=== PATIENT | female | born 1990 | race Caucasian/White ===

== ENCOUNTER 2020-02-13 20:39 | Inpatient (IN) | payer OTHER, SELFPAY ==
[~2020-02-13] VITALS: Ht 162.6 cm; Wt 82.2 kg
[2020-02-13 21:02] VITALS: BP 109/62
[2020-02-13] MEDS ORDERED: PROMETHAZINE INJ 25 MG/ML VIAL (J2550) As Ordered ONE (22:18)
[2020-02-13] MEDS ORDERED: LR 1,000 ML IV SCH (22:19)
[2020-02-13] MEDS ORDERED: BUTORPHANOL 2 MG/ML INJ (J0595) As Ordered ONE (22:19)
[2020-02-13] MEDS ORDERED: PENICILLIN G POTASSIUM IV 5 MU in D5W MINI-BAG PLUS 100 ML IV STA (22:19)
[2020-02-13] MEDS ORDERED: BUTORPHANOL 2 MG/ML INJ (J0595) IV ONE (22:30)
[2020-02-13] MEDS ORDERED: LACTATED RINGER'S 1000 ML IV SCH (22:30)
[2020-02-13] MEDS ORDERED: PROMETHAZINE INJ 25 MG/ML VIAL (J2550) IV ONE (22:30)
[2020-02-13 22:47] LABS: HEMATOCRIT 41.6 % (36.0-47.0); HEMOGLOBIN 13.8 g/dl (12.0-15.5); MEAN CORPUSCULAR HEMOGLOBIN 30.4 pg (27.0-33.0); MEAN CORPUSCULAR HGB CONC 33.2 g/dl (32.0-36.5); MEAN CORPUSCULAR VOLUME 91.6 fl (80.0-96.0); PLATELET COUNT, AUTOMATED 166 10^3/uL (150-450); RED BLOOD COUNT 4.54 10^6/uL (4.00-5.40); WHITE BLOOD COUNT 20.4 10^3/uL (4.0-10.0)
[2020-02-13 22:49] LABS: APPEARANCE, URINE CLOUDY (CLEAR); BACTERIA, URINE AUTO NEGATIVE (NEGATIVE); BILIRUBIN, URINE AUTO NEGATIVE (NEGATIVE); BLOOD, URINE BLOOD 3+ (NEGATIVE); COLOR, URINE YELLOW (YELLOW); GLUCOSE, URINE (UA) AUTO NEGATIVE (NEGATIVE); KETONE, URINE AUTO 2+ mg/dL (NEGATIVE); LEUKOCYTE ESTERASE, URINE AUTO 3+ (NEGATIVE); NITRITE, URINE AUTO NEGATIVE (NEGATIVE); PROTEIN, URINE AUTO NEGATIVE (NEGATIVE); RBC, URINE AUTO 85 /HPF (0-3); SPECIFIC GRAVITY URINE AUTO 1.011 (1.002-1.035); SQUAMOUS EPITHELIAL CELL UR AU 6 /HPF (0-6); UROBILINOGEN, URINE AUTO 0.2 mg/dL (0.0-2.0); WBC, URINE AUTO 88 /HPF (0-3)
--- NOTE | 2020-02-13 23:00 | HPEPDOC ---
Obstetrical History & Physical General Date of Admission Primary Care Physician: Antonio Padilla MD History of Present Illness 02/13/2020 29 YO G 2 P1 LMP 05/13/2019 EDC 02/17/2020 AT 39 .3 WEEKS CONTRACTI ONS MODERATE Q 5 MINUTES UNABLE TO TOLERATE THEM RISK FACTORS GBS POSITIVE HX PROLONGED LABOR LAST BABY NO LOSS OF FLUID NO BLEEDING . Chief Complaint: Contractions, term, Nausea and vomiting Information Provided By: Patient Age: 29 : 2 Term: 1 Livin Care Care: Good Care Dating Final EDC: Feb 17, 2020 Final EDC for Daily Update: Feb 17, 2020 Final EDC by: 1st trimester (US) LMP: May 13, 2019 1st Trimester Date: Jul 26, 2019 Estimated Date of Confinement: Feb 17, 2020 Past Medical History Past Obstetrical History : Past Obstetrical History: Multigravida Date of Delivery: Mar 03, 2017 Type of Delivery: Spontaneous Vaginal Del. HOME HOSPICE RN History: No pertinent history Past Medical History Surgical History: Other Family History Significant Family History: No pertinent family hx Social History Marital Status: Family situation: Spouse/partner home Psychosocial History: No pertinent psych hx * Smoker: non-smoker Alcohol: Denies Drugs: denies Abuse Violence Screening Have you been hit/kicked/slapp: No Have you been sexually assault: No Physical Examination Physical Examination GENERAL: Alert and oriented times three. BREAST: . ABDOMEN: Gravid and non-tender to touch. FETUS: Is vertex (VTX) by sterile vaginal examination (SVE), fetus is vertex (VTX) by Cheikh. HEART RATE: Regular rate and rhythm. LUNGS: Clear to auscultation NO WHEEZES NO RHONCHI EXTREMITIES: No edema. No clonus. Pertinent Laboratoy Data Blood Type: A- RBC Antibody Screen: Negative HIV: Negative Hepatitis B: Negative Rapid Plasma Reagin: Nonreactive Rubella: Immune Varicella: Nonreactive Chlamydia/Gonorrhea: Negative Group B Streptococcus: Positive Cystic Fibrosis: Negative Anatomy Ultrasound Placenta Location: Anterior Normal Anatomy: Yes Placenta Previa: No Steroid Therapy Steroid Therapy: No Vaginal Examination Dilation: 2cm Effacement: 60% Station: -3 Cervical Consistency: Soft Cervical Position: Posterior Presentation: Cephalic presentation Assessment Variability: Moderate Accelerations: Positive Decelerations: None Tocometer Contractions: Yes Frequency: regular, every 1-5 min. Duration: less than 60 seconds Strength: palpated as moderate Assessment/Plan Assessment 29-year-old (G2 para (P1 at 39.4weeks by 10.6 -week ultrasound. Presents to Labor and Delivery (L&D. Plan Admit and orient. 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 Diet: NPO Group B Streptococcus (GBS POSITIVE Labs and intravenous (IV) per unit protocol. Counseled on Pitocin AUGMENTATION Lactated Ringers (LR): Bolus 1000 mL, then at 125 mL/hr. Anticipate [normal spontaneous delivery ()]. C-S as appropriate. Labor and Delivery Counseling REVIEWED PLAN OF CARE PRESENTLY MAY BE IN EARLY LABOR HOWEVER KETONE POSITIVE + 3 POSTERIOR SOFT 2-3 CM. PATIENT GBS POSITIVE . WILL HYDRATE IV TILL KETONE NEGATIVE IV PAIN MEDICATION FOR NOW . IF CERVIX PROGRESSES THEN EPIDURAL INDICATED . WILL INITIATE GBS MEDS IF IN ACTIVE LABOR. REVIEWED VAGINAL DELIVERY THROUGH [facility] MAY NEED EPISIOTOMY WITH REPAIR TO EPISIOTOMY ALSO RISK OF INJURY TO BOWEL OR BLADDER OR SPHINCTER. AUGMENTATION MAY BE REQUIRED IF CONTRACTIONS NOT EFFECTIVE RISK TACHYSYSTOLE UTERINE RUPTURE BLOOD TRANSFUSION NRFHT EMERGENCY CS MAY LEAD TO LACERATION ADMISSION TO NICU . EXPRESSED UNDERSTANDING CATEGORY 1 STRIP SAFE TO PROCEED . VS,Fishbone, I+O VS, Fishbone, I+O Laboratory Tests 02/13/20 22:00 Antonio Padilla MD Feb 13, 2020 22:55
[2020-02-13] MEDS ORDERED: OXYTOCIN 30 UNITS IN 0.9% NaCl 500ML IV BAG (J2590) As Ordered ONE (23:46)
[2020-02-14 00:18] LABS: CORD GAS ABE A -4.2; CORD GAS ABE V -3.7; CORD GAS HCO3 V 21.7 MEQ/L; CORD GAS O2 SAT A 76.8 %; CORD GAS O2 SAT V 77.4 %; CORD GAS PCO2 V 40.7 mmHg; CORD GAS PH A 7.316 UNITS; CORD GAS PH V 7.345 UNITS; CORD GAS PO2 V 34.8 mmHg; CORD GAS SBC A 20.6 MEQ/L; CORD GAS SBC V 20.9 MEQ/L; CORD GAS TCO2 A 23.3 MEQ/L
[2020-02-14] MEDS ORDERED: RHOGAM 300 MCG (1500 IU) INJ (J2790) IM SCH (02:00)
[2020-02-14] MEDS ORDERED: METHYLERGONOVINE MALEATE 0.2 MG TAB PO PRN (02:00)
[2020-02-14] MEDS ORDERED: ANUSOL HC CREAM 30GM TOP PRN (02:00)
[2020-02-14] MEDS ORDERED: OXYTOCIN INJ 10 UNITS/ML VIAL (J2590) IV ONE (02:00)
[2020-02-14] MEDS ORDERED: OXYTOCIN DRIP 30 UNITS in IV 1 EA IV ONE (02:00)
[2020-02-14] MEDS ORDERED: IBUPROFEN 800 MG TAB PO PRN (02:00)
[2020-02-14] MEDS ORDERED: ACETAMINOPHEN TAB 650MG DOSE (2X325MG) PO PRN (02:00)
[2020-02-14] MEDS ORDERED: IBUPROFEN 600MG TAB PO PRN (02:00)
[2020-02-14] MEDS ORDERED: ACETAMINOPHEN 500 MG TAB PO PRN (02:00)
[2020-02-14] MEDS ORDERED: DIBUCAINE 1% OINTMENT 30GM TOP PRN (02:00)
[2020-02-14] MEDS ORDERED: MEASLES,MUMPS,RUBELLA VACCINE INJ (MMR-II) (90707) SC SCH (02:00)
[2020-02-14] MEDS ORDERED: DOCUSATE SODIUM 100 MG CAP PO PRN (02:00)
[2020-02-14] MEDS ORDERED: MOM 30ML SUSPENSION UDC PO PRN (02:00)
[2020-02-14] MEDS ORDERED: PENICILLIN G POTASSIUM IV 2.5 MU in IV 1 EA IV SCH (02:30)
--- NOTE | 2020-02-14 02:34 | DNPDOC ---
[facility] Delivery Note Delivery Note DATE OF DELIVERY: 02/14/20 PREDELIVERY DIAGNOSIS: SPONTANEOUS LABOR WITH UTI AT 39.3 WEEKS gestation POST DELIVERY DIAGNOSIS: Delivered. PROCEDURE: [Spontaneous vaginal delivery TECHNICAL DOCUMENT WRITER: Dr.E LUCAS ANESTHESIA: IV MEDS ESTIMATED BLOOD LOSS: 200 ML FINDINGS: 6 pound 15 ounce infant FEMALE Score 9/9 DELIVERY SUMMARY: Patient is a 29 year-old 2 now para 2 who was admitted to labor and delivery for UTI AND ACTIVE LABOR . PATIENT 2 HOURS LATER AFTER IV MEDS HAD SROM AND FELT LIKE PUSHING PRECIPITOUSLY DELIVERED FEMALE OVER INTACT PERINEUM, PATIENT CATHETERIZED FOR 650 ML CLEAR URINE UTERUS CONTRACTED DOWN UNDER PITOCIN SPONTANEOUS DELIVERY PLACENTA. PERINEUM AND LATERAL LEMUS INTACT SPHINCTER TIGHT ARTERIA AND VENOUS PH DONE . Antonio Lucas MD Feb 14, 2020 02:30
--- NOTE | 2020-02-14 02:35 | PMRNOTEPD ---
PMR Note Vital Sign - Last 24 Hours 02/13/20 02/13/20 21:02 22:30 Temp 98.6 98.6 Pulse 125 100 Resp 18 18 B/P (MAP) 109/62 (78) O2 Delivery Room Air Antonio Padilla MD Feb 14, 2020 02:32
--- NOTE | 2020-02-14 02:39 | IPNPDOC ---
Text Note Date of Service The patient was seen on 02/14/20. NOTE 02/14/2020 0220 AM EXAMINED PATIENT PRIOR TO DISCHARGE NO CHANGE IN CERVIX . SAFE TO PROCEED TRANSPORT Brad NG, I+O Brad NG I+O Laboratory Tests 02/13/20 22:00 Vital Signs Date Time Temp Pulse Resp B/P (MAP) Pulse Ox O2 Delivery O2 Flow Rate FiO2 02/13/20 22:30 98.6 100 18 Room Air 02/13/20 21:02 109/62 (78) I&O- Last 24 Hours up to 6 AM 02/14/20 06:00 Output Total 300 ml Balance -300 ml Antonio Padilla MD Feb 14, 2020 02:38
[2020-02-14] MEDS: cefTRIAXone SOD 1 GM in D5W MINI-BAG PLUS 50 ML IV SCH ×2 (03:00→14:36)
[2020-02-14 03:30] VITALS: BP 118/56
[2020-02-14 06:00] VITALS: BP 130/61
[2020-02-14] MEDS: PRENATAL VITAMINS CHEWABLE TABLET PO SCH (07:43)
[2020-02-14 18:00] VITALS: BP 112/60
[2020-02-15 06:00] VITALS: BP 123/56
[2020-02-15 07:55] LABS: HEMATOCRIT 35.6 % (36.0-47.0); MEAN CORPUSCULAR HEMOGLOBIN 31.2 pg (27.0-33.0); MEAN CORPUSCULAR HGB CONC 33.7 g/dl (32.0-36.5); MEAN CORPUSCULAR VOLUME 92.5 fl (80.0-96.0); PLATELET COUNT, AUTOMATED 164 10^3/uL (150-450); RED BLOOD COUNT 3.85 10^6/uL (4.00-5.40); WHITE BLOOD COUNT 18.3 10^3/uL (4.0-10.0)
[2020-02-15] MEDS: PRENATAL VITAMINS CHEWABLE TABLET PO SCH (08:51)
[2020-02-15] MEDS ORDERED: DOCU100C16 PO (10:03)
[2020-02-15] MEDS ORDERED: DIBU10OI TOP (10:03)
[2020-02-15] MEDS ORDERED: IBUP80TA PO (10:03)
--- NOTE | 2020-02-17 11:58 | DSES ---
DATE OF ADMISSION: 02/13/2020 DATE OF DISCHARGE: 02/15/2020 A 29-year-old 2, now para 2, admitted in spontaneous labor at 39.3 weeks of gestation. She had a precipitous delivery, live- female , 6:15, 3150 grams, scores of 9 and 9 at one and five minutes, respectively. Arterial pH 7.31, base excess -4.2, venous pH 7.34, base excess -3.7. She had intravenous (IV) medications for analgesia. Her admission diagnosis was dehydration, urinary tract infection, active labor, GBS positive, and back pain. She has been afebrile since delivery. Blood pressure is 123/56, respirations 18, pulse 75, temperature 97.4. Her admitting hemoglobin 13.8, hematocrit 41.6, and platelets were 166. Her white count was 20.4. day #1, hemoglobin 12.0, hematocrit 35.6, platelets 164, and white count was down to 18.3. Urinary culture and sensitivity (C and S) is pending, and she was given two doses of ceftriaxone every 12 hours for 48 hours. On discharge, we discussed phlebitis, cystitis, mastitis, endometritis, and cellulitis, diet, exercise, pain management, perineal, breast, and wound care. The patient has medications dispensed at [facility]. She has a 6-week checkup at [facility] in [place], at which time we will repeat the urine for C and S. Patient has had a persistent GBS positive urinary tract infection throughout , possibly requiring urology consultation. Patient and baby tolerated the procedure well. SONNY
== END 2020-02-15 18:00 | disposition home or self-care (01) | DRG 806 ==
LOC: M LDO 20:39 → M LDI 23:45 → M OBS 02-14 03:29
PROVIDERS: ADMIT Obstetrics & Gynecology; ATTEND Obstetrics & Gynecology
PROC: 10E0XZZ Delivery of Products of Conception, External Approach (ICD-10-PCS; principal; 2020-02-14)
DX: O62.3 Precipitate labor (principal); Z37.0 Single live birth; O23.43 Unspecified infection of urinary tract in pregnancy, third trimester; Z3A.39 39 weeks gestation of pregnancy; O99.824 Streptococcus B carrier state complicating childbirth; E86.0 Dehydration; O99.284 Endocrine, nutritional and metabolic diseases complicating childbirth